=== PATIENT | female | born 1950 | race Caucasian/White ===

== ENCOUNTER 2023-11-13 07:12 | Inpatient (IN) | payer MEDICARE ==
[2023-11-05 14:37] LABS: BASOPHILS # (AUTO) 0.1 X10'3 (0-0.2); BASOPHILS % (AUTO) 0.7 % (0-1); EOSINOPHILS # (AUTO) 0.3 X10'3 (0-0.9); EOSINOPHILS % (AUTO) 4.1 % (0-6); LYMPHOCYTES # (AUTO) 2.3 X10'3 (1.1-4.8); MEAN CORPUSCULAR HEMOGLOBIN 29.4 PG (27.0-31.0); MEAN CORPUSCULAR HGB CONC 32.7 g/dL (33.0-36.5); MEAN CORPUSCULAR VOLUME 89.9 FL (78-98); MONOCYTES # (AUTO) 0.9 X10'3 (0-0.9); MONOCYTES % (AUTO) 10.8 % (2-12); NEUTROPHILS # (AUTO) 4.5 X10'3 (1.8-7.7); NEUTROPHILS % (AUTO) 55.4 % (42-75); PRE OP HEMATOCRIT 31.3 % (35.0-45.0); PRE OP PLATELET COUNT 288 X10'3 (140-440); PRE OP WHITE BLOOD COUNT 8.1 10'3 (4.8-10.8); RED BLOOD COUNT 3.49 X10'6 (4.20-5.60); RED CELL DISTRIBUTION WIDTH 18.7 % (11.5-14.5)
[2023-11-05 14:39] LABS: PRE OP HEMOGLOBIN 10.3 g/dL (12.0-16.0)
[2023-11-05 14:41] LABS: BILIRUBIN,URINE NEGATIVE (Neg); CLARITY,URINE SLIGHTLY CLOUDY (Clear); COLOR,URINE STRAW (Yellow); GLUCOSE, URINE NEGATIVE (Neg); KETONES,URINE NEGATIVE (Neg); LEUKOCYTE ESTERASE ,URINE SMALL (Neg); NITRITES, URINE NEGATIVE (Neg); OCCULT BLOOD,URINE NEGATIVE (Neg); PROTEIN,URINE NEGATIVE (Neg); UROBILINOGEN,URINE 0.2 E.U/dL (0.2-1.0)
[2023-11-05 14:44] LABS: UA COLLECTION TYPE CLN CATCH MIDSTREAM
[2023-11-05 14:55] LABS: PRE OP PROTIME 18.6 SECONDS (9.0-12.0)
[2023-11-05 15:00] LABS: SQUAMOUS EPITHELIAL CELL,UR MANY /LPF (FEW)
[2023-11-05 15:01] LABS: ALKALINE PHOSPHATASE 91 IU/L (46-116); BACTERIA,URINE 1+ /HPF (Neg); BLOOD UREA NITROGEN 23 MG/DL (7-18); BUN/CREATININE RATIO 21.9 (10.0-20.0); CALCIUM 9.5 MG/DL (8.5-10.1); CHLORIDE 105 MMOL/L (99-107); CREATININE 1.05 MG/DL (0.40-0.90); HYALINE CASTS 0-3 /LPF (NEGATIVE); PRE OP ALT 16 U/L (30-65); PRE OP ANION GAP 9 (8-16); PRE OP AST 13 U/L (10-37); PRE OP BILIRUB, TOTAL 0.3 MG/DL (0.0-1.0); PRE OP GLUCOSE 120 MG/DL (70-104); PRE OP INR 1.8 INR; PRE OP POTASSIUM 4.2 MMOL/L (3.4-5.1); PRE OP SODIUM 138 MMOL/L (135-145); THYROID STIMULATING HORMONE 0.57 ulU/ml (0.34-4.50); TOTAL CARBON DIOXIDE 24.5 MMOL/L (24-32); TOTAL PROTEIN 7.9 G/DL (6.4-8.2); TRANSITIONAL EPI CELLS,URINE FEW /HPF; eGFR 51 ML/MIN
[2023-11-05 15:02] LABS: RBC,URINE 0-2 /HPF (0-2)
[2023-11-05 15:14] LABS: HEMOGLOBIN A1C 7.4 % (4.5-6.2)
[2023-11-05 15:18] LABS: ANISOCYTOSIS 2+; BURR CELLS FEW; ELLIPTOCYTES 1+; PLATELET ESTIMATE NORMAL
[2023-11-13] VITALS (32 sets, daily range): BP systolic 112–162; BP diastolic 48–101; PULSE 55–70; RESP 9–17; TEMP 96.8–98.7; O2SAT 92–99
[~2023-11-13] VITALS: Ht 152.4 cm; Wt 76.4 kg
[2023-11-13] MEDS: cefazolin 2gm/D5W 100mL 100 ML IV ONE (05:30)
[~2023-11-13 07:12] MED LIST: AMIO200T27 PO; ATOR-2 PO; CHOL10006 PO; ENAL20TA75 PO; LEVO75CA5 PO; MAGN250T11 PO; NITR0.4T51 SL; PIOG45TA64 PO; SITA1TAB6 PO; WARF-55 PO; WARF2.5T82 PO; ondansetron/PF 4mg/2ml inj IV PRN
[2023-11-13] MEDS: ringers solution, lacted 1,000 ML IV SCH (07:58)
[2023-11-13] MEDS: vancomycin 1,500 MG in NS 300ml IV soln IV ONE (07:58)
[2023-11-13] MEDS: famotidine 20mg tablet PO ONE (07:58)
[2023-11-13] MEDS ORDERED: ringers solution, lacted 1,000 ML IV SCH (10:00)
[2023-11-13] MEDS ORDERED: proCHLORperazine 10 MG/2 ml inj IV PRN ×2 (10:00→11:20)
[2023-11-13] MEDS ORDERED: ondansetron/PF 4mg/2ml inj IV PRN ×2 (10:00→11:20)
[2023-11-13] MEDS ORDERED: meperidine/PF 25mg/ml syringe IV PRN ×3 (10:00)
[2023-11-13] MEDS ORDERED: morphine 2 MG/ML inj. syringe IV PRN (10:00)
[2023-11-13] MEDS ORDERED: sevoflurane 250ml liquid IH ONE (10:12)
[2023-11-13] MEDS ORDERED: iohexol 350MG/ML 100ml bottle IV ONE (10:12)
[2023-11-13] MEDS ORDERED: midazolam 1 mg/ML 2ml injection ONE (10:16)
[2023-11-13] MEDS ORDERED: fentaNYL/PF 50MCG/1 ML 2ML syringe ONE (10:16)
[2023-11-13] MEDS ORDERED: propofol inj 20 ML IV ONE (10:34)
[2023-11-13] MEDS ORDERED: heparin 1,000unit/ml 10ml vial 10 ML ONE (10:34)
[2023-11-13] MEDS ORDERED: rocuronium 10mg/ml inj IV ONE (10:40)
[2023-11-13] MEDS ORDERED: neostigmine methylsulfate 1 MG/ML 10ml vial ONE (10:41)
[2023-11-13] MEDS ORDERED: glycopyrrolate 0.2mg/ml inj ONE (10:41)
[2023-11-13] MEDS ORDERED: potassium Cl 20 mEq SR tablet PO PRN (11:20)
[2023-11-13] MEDS ORDERED: labetalol 20mg/4ml (5mg/ml) syringe IV PRN (11:20)
[2023-11-13] MEDS ORDERED: potassium CL 10mEq/100ml bag 100 ML IV PRN (11:20)
[2023-11-13] MEDS ORDERED: hydrALAZINE 20mg/ml inj. IV PRN (11:20)
[2023-11-13] MEDS ORDERED: magnesium 2GM in 50ml NS 50 ML IV PRN (11:20)
[2023-11-13] MEDS ORDERED: docusate sod 100mg capsule PO PRN (11:20)
[2023-11-13] MEDS ORDERED: potassium Cl 20mEq/100mL bag 100 ML IV PRN (11:20)
[2023-11-13] MEDS ORDERED: potassium Cl 40MEQ/1/2NS 520ml 520 ML IV PRN (11:20)
[2023-11-13] MEDS ORDERED: diphenhydrAMINE 25mg capsule PO PRN (11:20)
[2023-11-13] MEDS ORDERED: pantoprazole 40mg Tablet.DR PO PRN (11:20)
[2023-11-13] MEDS ORDERED: potassium Cl 40MEQ/270ML bag 250 ML IV PRN (11:20)
[2023-11-13] MEDS ORDERED: magnesium 4gm in 100ml NS 100 ML IV PRN (11:20)
[2023-11-13] MEDS ORDERED: ALPRAZolam 0.25mg tablet PO PRN (11:20)
[2023-11-13] MEDS ORDERED: DEXTROSE 15 GM of carb/4 tabs (each vial/BOTTLE has 4 tablets) PO PRN ×2 (11:25)
[2023-11-13] MEDS ORDERED: dextrose 50%-water 50ml dispensing syringe IV PRN ×2 (11:25)
[2023-11-13] MEDS ORDERED: glucagon, human recombinant 1mg kit SUBCUT PRN (11:25)
[2023-11-13] MEDS: morphine 4 MG/ML inj SYRINge IV PRN (11:44)
[2023-11-13] MEDS ORDERED: INSULIN LISPRO 100 UNIT/ML INSULN.PEN MULTI-DOSE SQ SCH (12:00)
[2023-11-13] MEDS: INSULIN LISPRO 100 UNIT/ML INSULN.PEN MULTI-DOSE SQ SCH (12:00)
[2023-11-13] MEDS: cholecalciferol (vitamin D3) 1,000 unit (25mcg) tablet PO SCH (20:58)
[2023-11-13] MEDS: atorvastatin 20mg tablet PO SCH (20:58)
[2023-11-13] MEDS: lisinopril 20mg tablet PO SCH (21:02)
[2023-11-13] MEDS: sod chloride 0.9% 10ml flush syringe IV SCH (21:19)
[2023-11-13] MEDS: normal saline 1000ml 1,000 ML IV SCH (21:19)
[2023-11-14 02:00] VITALS: BP 137/51; PULSE 58; RESP 16; TEMP 97.8; O2SAT 96
[2023-11-14] MEDS: acetaminophen 325mg tablet PO PRN (05:56)
[2023-11-14 07:38] VITALS: BP 122/48; PULSE 61; RESP 16; TEMP 97.1; O2SAT 95
[2023-11-14] MEDS: amiodarone 200mg tablet PO SCH (07:52)
[2023-11-14] MEDS: levoTHYROXINE 75mcg tablet PO SCH (07:52)
[2023-11-14] MEDS: magnesium oxide 400mg tablet PO SCH (07:53)
[2023-11-14 07:57] LABS: BASOPHILS % (AUTO) 0.4 % (0-1); EOSINOPHILS # (AUTO) 0.2 X10'3 (0-0.9); HEMATOCRIT 25.4 % (35.0-45.0); HEMOGLOBIN 8.2 g/dl (12.0-16.0); LYMPHOCYTES # (AUTO) 1.2 X10'3 (1.1-4.8); LYMPHOCYTES % (AUTO) 16.5 % (21-51); MEAN CORPUSCULAR HGB CONC 32.2 g/dL (33.0-36.5); MEAN CORPUSCULAR VOLUME 90.1 FL (78-98); MEAN PLATELET VOLUME 9.2 FL (7.4-10.4); MONOCYTES % (AUTO) 13.9 % (2-12); NEUTROPHILS % (AUTO) 66.2 % (42-75); PLATELET COUNT 185 X10'3 (140-440); RED BLOOD COUNT 2.81 X10'6 (4.20-5.60); RED CELL DISTRIBUTION WIDTH 19.2 % (11.5-14.5); WHITE BLOOD COUNT 7.5 X10'3 (4.5-11.0)
[2023-11-14 08:02] LABS: PROTHROMBIN TIME 39.9 SECONDS (9.0-12.0)
[2023-11-14 08:07] LABS: INR 4.2 INR
[2023-11-14 08:11] LABS: ALANINE AMINOTRANSFERASE 17 U/L (12-78); ALKALINE PHOSPHATASE 55 IU/L (46-116); ANION GAP 6 (8-16); ASPARTATE AMINO TRANSFERASE 12 U/L (10-37); BILIRUBIN,TOTAL 0.4 MG/DL (0.1-1.0); BLOOD UREA NITROGEN 22 MG/DL (7-18); BUN/CREATININE RATIO 18.2 (10.0-20.0); CALCIUM 8.9 MG/DL (8.5-10.1); CHLORIDE 112 MMOL/L (99-107); CREATININE 1.21 MG/DL (0.40-0.90); GLUCOSE 132 MG/DL (70-104); MAGNESIUM 1.4 MG/DL (1.5-2.4); POTASSIUM 5.4 MMOL/L (3.5-5.1); PRO BRAIN NATRIURETIC PEPTIDE 532 PG/ML (0-125); SODIUM 140 MMOL/L (135-145); TOTAL CARBON DIOXIDE 22.2 MMOL/L (24-32); TOTAL PROTEIN 6.1 G/DL (6.4-8.2); eCRCL 30 ML/MIN; eGFR 44 ML/MIN
[2023-11-14 09:56] LABS: PLATELET ESTIMATE NORMAL
[2023-11-14 09:58] LABS: ANISOCYTOSIS 2+; BURR CELLS FEW; ELLIPTOCYTES 1+; POLYCHROMASIA FEW; SCHISTOCYTES FEW
[2023-11-14 10:00] VITALS: BP_SYST 107; BP_SYST 112; BP_DIAS 37; BP_DIAS 44; PULSE 56; PULSE 57; RESP 15; RESP 16; TEMP 97.2; TEMP 97.5; O2SAT 95; O2SAT 97
[2023-11-14] MEDS: HYDROcodone/acetaminophen 10/325mg tab PO PRN (12:52)
[2023-11-14] MEDS ORDERED: ondansetron 4mg rapidly disintigrating tab PO PRN (13:50)
[2023-11-14 13:52] VITALS: RESP 16
== END 2023-11-14 18:07 | disposition home or self-care (01) | DRG 274 ==
LOC: PAS IN 07:27 → PCU 3S 17:31
PROVIDERS: ADMIT Student in an Organized Health Care Education/Training Program; ATTEND Student in an Organized Health Care Education/Training Program
PROC: 03HY32Z Insertion of Monitoring Device into Upper Artery, Percutaneous Approach (ICD-10-PCS; 2023-11-13)
PROC: B24BZZ4 Ultrasonography of Heart with Aorta, Transesophageal (ICD-10-PCS; 2023-11-13)
PROC: 02L73DK Occlusion of Left Atrial Appendage with Intraluminal Device, Percutaneous Approach (ICD-10-PCS; principal; 2023-11-13 10:12)
DX: I48.91 Unspecified atrial fibrillation (principal); Z00.6 Encounter for examination for normal comparison and control in clinical research program; E11.51 Type 2 diabetes mellitus with diabetic peripheral angiopathy without gangrene; I25.10 Atherosclerotic heart disease of native coronary artery without angina pectoris; I10 Essential (primary) hypertension; E78.5 Hyperlipidemia, unspecified; E03.9 Hypothyroidism, unspecified; Z79.01 Long term (current) use of anticoagulants; Z87.891 Personal history of nicotine dependence; Z79.4 Long term (current) use of insulin
CPT/HCPCS: 33340; 36415; 71045; 71046; 76937; 80053; 81001; 82948; 83036; 83735; 83880; 84443; 85008; 85025; 85347; 85610; 85730; 86885; 86900; 86901; 86920; 87081; 87088; 93005; 93308; 93312; 93325; A4314; A4615; A4618; A6258; A6402; A6449; C1760; C1889; C1893; G0378; J0690; J1100; J1644; J1815; J2250; J2270; J2405; J2704; J2710; J3010; J3370; J3490; J7030; J7040; J7120; Q9967